=== PATIENT | male | born 1975 | race Caucasian/White ===

== ENCOUNTER 2019-06-11 13:21 | Emergency (ER) | payer BC ==
--- NOTE | 2019-06-11 14:05 | EDM.PDOC ---
<Paula Bach - Last Filed: 06/11/19 14:14> ED HPI GENERAL MEDICAL PROBLEM - General Chief Complaint: General Stated Complaint: LIGHTHEADED AND CHEST PAIN Time Seen by Provider: 06/11/19 13:30 Source of Information: Reports: Patient History Limitations: Reports: No Limitations - History of Present Illness INITIAL COMMENTS - FREE TEXT/NARRATIVE: 43 year old male presents to the ED after being sent here from the walk in clinic. 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 Pt states that he was getting ready to yell at the class to get their attention when he suddenly became dizzy, nauseated and had double vision. Denies diaphoresis or chest pain or palpitations. States that he immediately sat down for fear of passing out and had his students watch a movie. He said that he ate lunch and still did not feel well, so he decided to go to the walk in clinic. Has episodes where he feels slightly dizzy and his hands and fingers become cold. Has had issues in the past where if he stands up too quickly, he will get dizzy, but this resolves on its own. Currently is being treated by a psychologist for anxiety with magnesium supplementation and cbd oil , which he said seems to be helping. Also complains of muscle pain at the base of his skull which he contributes to tension. Excercises most days running 3 miles. Drinks one cup of coffee daily. Right Chest Pain Score (Numeric/FACES): 4 - Related Data Allergies Allergy/AdvReac Type Severity Reaction Status Date / Time No Known Allergies Allergy Verified 07/24/14 16:06 Home Meds: Home Meds Acetaminophen [Tylenol] 650 mg PO DAILY 07/24/14 [History] Ibuprofen [Advil] 200 mg PO Q6H PRN 07/24/14 [History] Acetaminophen/oxyCODONE [Percocet 325-5 MG] 1 each PO Q6H PRN #40 tab 07/27/14 [ Rx] Past Medical History Musculoskeletal History: Reports: Other (See Below) Other Musculoskeletal History: ACL replaced Social & Family History - Tobacco Use Smoking Status *Q: Never Smoker - Caffeine Use Caffeine Use: Reports: Coffee, Soda - Recreational Drug Use Recreational Drug Use: No ED ROS GENERAL - Review of Systems Review Of Systems: See Below Constitutional: Reports: No Symptoms HEENT: Reports: Vision Change. Denies: Vertigo Respiratory: Reports: No Symptoms Cardiovascular: Reports: Lightheadedness. Denies: Chest Pain, Dyspnea on Exertion, Palpitations, Syncope Endocrine: Reports: No Symptoms GI/Abdominal: Reports: No Symptoms : Reports: No Symptoms Musculoskeletal: Reports: Neck Pain (paraspinous pain) Skin: Reports: No Symptoms Neurological: Reports: Dizziness. Denies: Headache, Numbness, Syncope, Tingling , Trouble Speaking, Difficulty Walking, Change in Speech Psychiatric: Reports: No Symptoms Hematologic/Lymphatic: Reports: No Symptoms Immunologic: Reports: No Symptoms ED EXAM, GENERAL - Physical Exam Exam: See Below Exam Limited By: No Limitations General Appearance: Alert, WD/WN, No Apparent Distress Ears: Normal External Exam, Hearing Grossly Normal Nose: Normal Inspection, Normal Mucosa, No Blood Throat/Mouth: Normal Inspection, Normal Lips, Normal Teeth, Normal Gums, Normal Oropharynx, Normal Voice, No Airway Compromise Head: Atraumatic, Normocephalic Neck: Normal Inspection, Supple, Non-Tender Respiratory/Chest: No Respiratory Distress, Lungs Clear, Normal Breath Sounds, No Accessory Muscle Use, Chest Non-Tender Cardiovascular: Normal Peripheral Pulses, Regular Rate, Rhythm, No Edema, No Murmur GI/Abdominal: Normal Bowel Sounds, Soft, Non-Tender (Male) Exam: Deferred Rectal (Males) Exam: Deferred Back Exam: Normal Inspection, Full Range of Motion, Paraspinal Tenderness ( cervical) Extremities: Normal Inspection, Normal Range of Motion, Non-Tender, Normal Capillary Refill Neurological: Alert, Oriented, No Motor/Sensory Deficits Psychiatric: Normal Affect, Normal Mood Skin Exam: Warm, Dry, Intact, Normal Color, No Rash, Other (xanthelasma noted to bilateral eyelids and under eyes) Lymphatic: No Adenopathy Course - Vital Signs Last Recorded V/S: Last Vital Signs Temp 97.7 F 06/11/19 13:30 Pulse 67 06/11/19 13:30 Resp 10 L 06/11/19 13:30 BP 147/87 H 06/11/19 13:30 Pulse Ox - Orders/Labs/Meds Orders: Active Orders 24 hr Category Date Time Status EKG Documentation Completion [RC] ASDIRECTED Care 06/11/19 13:43 Active Holter Monitor 48 Hours [RC] .PRN Care 06/11/19 14:50 Active EKG 12 Lead [EK] Stat Ther 06/11/19 13:43 Ordered Labs: Laboratory Tests 06/11/19 06/11/19 Range/Units 14:00 14:00 WBC 7.76 (4.23-9.07) K/mm3 RBC 4.88 (4.63-6.08) M/mm3 Hgb 13.6 L D (13.7-17.5) gm/dl Hct 40.1 (40.1-51.0) % MCV 82.2 (79.0-92.2) fl MCH 27.9 (25.7-32.2) pg MCHC 33.9 (32.2-35.5) g/dl RDW Std Deviation 39.0 (35.1-43.9) fL Plt Count 190 (163-337) K/mm3 MPV 10.9 (9.4-12.3) fl Neut % (Auto) 53.6 (34.0-67.9) % Lymph % (Auto) 32.1 (21.8-53.1) % [place] % (Auto) 10.7 (5.3-12.2) % Eos % (Auto) 2.8 (0.8-7.0) Baso % (Auto) 0.4 (0.1-1.2) % Neut # (Auto) 4.16 (1.78-5.38) K/mm3 Lymph # (Auto) 2.49 (1.32-3.57) K/mm3 [place] # (Auto) 0.83 H (0.30-0.82) K/mm3 Eos # (Auto) 0.22 (0.04-0.54) K/mm3 Baso # (Auto) 0.03 (0.01-0.08) K/mm3 Sodium 139 (136-145) mEq/L Potassium 4.0 (3.5-5.1) mEq/L Chloride 103 (98-107) mEq/L Carbon Dioxide 28 (21-32) mEq/L Anion Gap 12.0 (5-15) BUN 24 H (7-18) mg/dL Creatinine 1.0 (0.7-1.3) mg/dL Est Cr Clr Drug Dosing 103.54 mL/min Estimated GFR (MDRD) > 60 (>60) mL/min BUN/Creatinine Ratio 24.0 H (14-18) Glucose 99 (74-106) mg/dL Calcium 9.0 (8.5-10.1) mg/dL Total Bilirubin 0.2 (0.2-1.0) mg/dL AST 24 (15-37) U/L ALT 42 (16-63) U/L Alkaline Phosphatase 122 H (46-116) U/L Troponin I < 0.017 (0.00-0.056) ng/mL Total Protein 7.5 (6.4-8.2) g/dl Albumin 3.7 (3.4-5.0) g/dl Globulin 3.8 gm/dL Albumin/Globulin Ratio 1.0 (1-2) - Re-Assessments/Exams Free Text/Narrative Re-Assessment/Exam: 06/11/19 1345 I have ordered a CBC, CMP, Trop., and chest xray on this patient. EKG was already obtained. Departure - Departure Disposition: Home, Self-Care 01 Clinical Impression: Near syncope - Discharge Information Instructions: Near-Syncope Referrals: Franki Chavarria MD [Primary Care Provider] - Forms: ED Department Discharge Additional Instructions: 48 hour holter moniter. See Dr Bourgeois in about 8 to 12 days for follow up, call for appointment. Return to ED as needed if symptoms worsening in any way. - My Orders Last 24 Hours: My Active Orders 06/11/19 13:43 EKG Documentation Completion [RC] ASDIRECTED EKG 12 Lead [EK] Stat - Assessment/Plan Last 24 Hours: My Active Orders 06/11/19 13:43 EKG Documentation Completion [RC] ASDIRECTED EKG 12 Lead [EK] Stat <Matthew Dumont L - Last Filed: 06/11/19 15:28> EKG INTERPRETATION EKG Date: 06/11/19 Rhythm: NSR [place]: Normal P-Wave: Present QRS: Normal ST-T: Normal QT: Normal Course - Re-Assessments/Exams Free Text/Narrative Re-Assessment/Exam: 06/11/19 15:21. Initial hx and exam was done by LEONIE Dwyer student. I agree with hx and exam as documented. I have also interviewed and examined patient. Lab have come back normal including troponin. EKG was normal. He is been in sinus rhythm with no ectopy. Departure - Departure Time of Disposition: 15:16 Condition: Fair
--- NOTE | 2019-06-11 14:32 | CR ---
Chest: Two views of the chest were obtained. Comparison: No prior chest x-ray. Heart size and mediastinum are normal. Lungs are clear. Bony structures are unremarkable. Impression: 1. Nothing acute is seen on two-view chest x-ray. Diagnostic code #1
== END 2019-06-11 15:24 | disposition home or self-care (01) ==
LOC: JD.ED 13:21
DX: R55 Syncope and collapse (principal)
CPT/HCPCS: 36415; 71046; 71046-26; 80053; 84484; 85025; 93005; 93010; 93225; 93226; 99284; 99285-25

== ENCOUNTER 2019-08-31 11:35 | Emergency (ER) | payer BC ==
[2019-08-31] MEDS ORDERED: Ondansetron 4 MG/2 ML SDV IVPUSH ONE (11:48)
[2019-08-31] MEDS ORDERED: Sodium Chloride 0.9% 10 ML Syringe FLUSH PRN (11:48)
[2019-08-31] MEDS ORDERED: Morphine 4 MG/ML Syringe IVPUSH ONE (11:48)
[2019-08-31] MEDS ORDERED: Sodium Chloride 0.9% 1,000 ML IV ONE (11:49)
--- NOTE | 2019-08-31 11:51 | EDM.PDOC ---
ED HPI GENERAL MEDICAL PROBLEM - General Chief Complaint: Abdominal Pain Stated Complaint: RT SIDE PAIN Time Seen by Provider: 08/31/19 11:44 Source of Information: Reports: Patient, Family History Limitations: Reports: No Limitations - History of Present Illness INITIAL COMMENTS - FREE TEXT/NARRATIVE: The patient is an unfortunate 43-year-old male who presents emergency Department today with complaint of right flank pain and right lower quadrant abdominal pain started approximately 6 AM when he awoke this morning. Patient reports pain is progressed throughout the days had multiple episodes of vomiting secondary to the pain was so severe he did not go to [facility] this morning. No fever no chills positive nausea positive vomiting no dysuria and frequency no urgency no hematuria no chest pain no shortness of breath. Right Upper Abdomen Pain Score (Numeric/FACES): 9 - Related Data Allergies Allergy/AdvReac Type Severity Reaction Status Date / Time No Known Allergies Allergy Verified 08/31/19 11:44 Home Meds: Home Meds Acetaminophen with Codeine [Tylenol with Codeine #3 Tablet] 1 each PO Q4H PRN # 20 tablet 08/31/19 [Rx] Past Medical History - Past Health History Medical/Surgical History: Denies Medical/Surgical History Musculoskeletal History: Reports: Other (See Below) Other Musculoskeletal History: ACL replaced Social & Family History - Caffeine Use Caffeine Use: Reports: Coffee, Soda ED ROS GENERAL - Review of Systems Review Of Systems: See Below Constitutional: Denies: Fever, Chills GI/Abdominal: Reports: Abdominal Pain, Nausea, Vomiting. Denies: Diarrhea Musculoskeletal: Reports: Back Pain ED EXAM, GI/ABD - Physical Exam Exam: See Below Exam Limited By: No Limitations General Appearance: Alert, WD/WN, Moderate Distress Throat/Mouth: Normal Inspection, Normal Lips, Normal Teeth, Normal Gums, Normal Oropharynx, Normal Voice, No Airway Compromise Head: Atraumatic, Normocephalic Neck: Normal Inspection, Supple, Non-Tender, Full Range of Motion Respiratory/Chest: No Respiratory Distress, Lungs Clear, Normal Breath Sounds, No Accessory Muscle Use, Chest Non-Tender Cardiovascular: Normal Peripheral Pulses, Regular Rate, Rhythm, No Edema, No Gallop, No JVD, No Murmur, No Rub GI/Abdominal Exam: Normal Bowel Sounds, Soft, Tender (Right lower quadrant, right upper quadrant mild) Back Exam: CVA Tenderness (R) (Mild) Extremities: Normal Inspection, Normal Range of Motion, Non-Tender, Normal Capillary Refill, No Pedal Edema Neurological: Alert Skin Exam: Warm, Dry, No Rash Course - Vital Signs Last Recorded V/S: Last Vital Signs Temp 97 F 08/31/19 11:46 Pulse 58 L 08/31/19 11:46 Resp 20 08/31/19 11:46 BP 171/97 H 08/31/19 11:46 Pulse Ox 99 08/31/19 11:46 - Orders/Labs/Meds Orders: Active Orders 24 hr Category Date Time Status Sodium Chloride 0.9% [Saline Flush] Med 08/31/19 11:48 Active 10 ml FLUSH ASDIRECTED PRN Saline Lock Insert [OM.PC] Stat Oth 08/31/19 11:48 Ordered Medication Orders Sodium Chloride (Saline Flush) 10 ml FLUSH ASDIRECTED PRN PRN Reason: Keep Vein Open Last Admin: 08/31/19 11:59 Dose: 10 ml Labs: Laboratory Tests 08/31/19 08/31/19 08/31/19 Range/Units 12:00 12:00 12:13 WBC 12.62 H (4.23-9.07) K/mm3 RBC 5.07 (4.63-6.08) M/mm3 Hgb 14.6 (13.7-17.5) gm/dl Hct 42.1 (40.1-51.0) % MCV 83.0 (79.0-92.2) fl MCH 28.8 (25.7-32.2) pg MCHC 34.7 (32.2-35.5) g/dl RDW Std Deviation 38.4 (35.1-43.9) fL Plt Count 182 (163-337) K/mm3 MPV 10.9 (9.4-12.3) fl Neut % (Auto) 73.9 H (34.0-67.9) % Lymph % (Auto) 15.5 L (21.8-53.1) % [place] % (Auto) 9.4 (5.3-12.2) % Eos % (Auto) 0.7 L (0.8-7.0) Baso % (Auto) 0.1 (0.1-1.2) % Neut # (Auto) 9.34 H (1.78-5.38) K/mm3 Lymph # (Auto) 1.95 (1.32-3.57) K/mm3 [place] # (Auto) 1.18 H (0.30-0.82) K/mm3 Eos # (Auto) 0.09 (0.04-0.54) K/mm3 Baso # (Auto) 0.01 (0.01-0.08) K/mm3 Sodium 140 (136-145) mEq/L Potassium 4.3 (3.5-5.1) mEq/L Chloride 101 (98-107) mEq/L Carbon Dioxide 30 (21-32) mEq/L Anion Gap 13.3 (5-15) BUN 19 H (7-18) mg/dL Creatinine 1.2 (0.7-1.3) mg/dL Est Cr Clr Drug Dosing TNP Estimated GFR (MDRD) > 60 (>60) mL/min BUN/Creatinine Ratio 15.8 (14-18) Glucose 109 H (74-106) mg/dL Calcium 9.4 (8.5-10.1) mg/dL Total Bilirubin 0.4 (0.2-1.0) mg/dL AST 23 (15-37) U/L ALT 42 (16-63) U/L Alkaline Phosphatase 99 (46-116) U/L Total Protein 7.8 (6.4-8.2) g/dl Albumin 3.9 (3.4-5.0) g/dl Globulin 3.9 gm/dL Albumin/Globulin Ratio 1.0 (1-2) Lipase 84 (73-393) U/L Urine Color Yellow (Yellow) Urine Appearance Clear (Clear) Urine pH 7.0 (5.0-8.0) Ur Specific [place] 1.025 (1.005-1.030) Urine Protein 2+ H (Negative) Urine Glucose (UA) Negative (Negative) Urine Ketones Negative (Negative) Urine Occult Blood 3+ H (Negative) Urine Nitrite Negative (Negative) Urine Bilirubin Negative (Negative) Urine Urobilinogen 0.2 (0.2-1.0) Ur Leukocyte Esterase Negative (Negative) Urine RBC Too numerous to cnt H (0-5) /hpf Urine WBC Not seen (0-5) /hpf Ur Squamous Epith Cells Not seen (0-5) /hpf Urine Bacteria Not seen (FEW) /hpf Urine Mucus Not seen (FEW) /hpf Meds: Medications Generic Name Dose Route Start Last Admin Trade Name Freq PRN Reason Stop Dose Admin Sodium Chloride 10 ml 08/31/19 11:48 08/31/19 11:59 Saline Flush FLUSH 10 ml ASDIRECTED PRN Administration Keep Vein Open Discontinued Medications Generic Name Dose Route Start Last Admin Trade Name Freq PRN Reason Stop Dose Admin Sodium Chloride 1,000 mls @ 1,000 mls/hr 08/31/19 11:49 08/31/19 11:59 Normal Saline IV 08/31/19 12:48 1,000 mls/hr ONETIME ONE Administration Ketorolac Tromethamine 30 mg 08/31/19 12:21 08/31/19 12:31 Toradol IVPUSH 08/31/19 12:22 30 mg ONETIME ONE Administration Morphine Sulfate 4 mg 08/31/19 11:48 08/31/19 11:58 Morphine IVPUSH 08/31/19 11:49 4 mg ONETIME ONE Administration Ondansetron HCl 4 mg 08/31/19 11:48 08/31/19 11:59 Zofran IVPUSH 08/31/19 11:49 4 mg ONETIME ONE Administration - Re-Assessments/Exams Free Text/Narrative Re-Assessment/Exam: 08/31/19 13:03 CT abdomen and pelvis "impression: #1 4 mm obstructing stone within the right proximal right ureter as described above. #2 2 nonobstructing renal calculi within the left kidney #3 no other acute findings appreciated." Departure - Departure Time of Disposition: 13:04 Disposition: Home, Self-Care 01 Condition: Good Clinical Impression: Renal colic on right side, Ureterolithiasis - Discharge Information Prescriptions: Acetaminophen with Codeine [Tylenol with Codeine #3 Tablet] 1 each PO Q4H PRN # 20 tablet PRN Reason: Pain Referrals: Franki Chavarria MD [Primary Care Provider] - Forms: ED Department Discharge Sepsis Event Note - Evaluation Sepsis Screening Result: No Definite Risk - Focused Exam Vital Signs: Vital Signs Temp Pulse Resp BP Pulse Ox 08/31/19 11:46 97 F 58 L 20 171/97 H 99 Date Exam was Performed: 08/31/19 Time Exam was Performed: 13:03 - My Orders Last 24 Hours: My Active Orders 08/31/19 11:48 Sodium Chloride 0.9% [Saline Flush] 10 ml FLUSH ASDIRECTED PRN Saline Lock Insert [OM.PC] Stat - Assessment/Plan Last 24 Hours: My Active Orders 08/31/19 11:48 Sodium Chloride 0.9% [Saline Flush] 10 ml FLUSH ASDIRECTED PRN Saline Lock Insert [OM.PC] Stat
[2019-08-31] MEDS ORDERED: Ketorolac 30 MG/ML SDV IVPUSH ONE (12:21)
--- NOTE | 2019-08-31 12:55 | CT ---
CT abdomen and pelvis Technique: Multiple axial sections were obtained from above the dome of the diaphragm inferiorly to the pubic symphysis. Intravenous and oral contrast not utilized. Study has been performed as a ureteral stone protocol. Comparison: No prior abdominal imaging. Findings: Collecting system of the right kidney is mildly dilated. Inflammatory change is seen around the proximal right ureter. These findings are cause by a nonobstructing stone within the proximal right ureter measuring about 4 mm. This stone is located at the inferior L3 vertebral level. No other abnormal calcifications are seen along the course of the ureters. 2 nonobstructing calculi are seen within the left kidney. Right kidney shows no abnormal calcifications. Other findings: Visualized lung bases show nothing acute. Noncontrast appearance of the liver and spleen shows no discrete abnormality. Adrenal glands show no nodule. Pancreas shows no discrete finding. Gallbladder contains no calcified gallstones. Aorta shows no aneurysm. No retroperitoneal adenopathy or mesenteric abnormalities are seen. Appendix is seen which is normal in size. No pelvic mass or adenopathy is seen. No free fluid is seen. Bone window settings were reviewed which shows no acute osseous finding. Impression: 1. 4 mm obstructing stone within the proximal right ureter as described above. 2. 2 nonobstructing calculi within the left kidney. 3. No other acute finding is appreciated. Diagnostic code #3 Study was dictated in [place] Standard Time
== END 2019-08-31 13:25 | disposition home or self-care (01) ==
LOC: JD.ED 11:35
DX: N20.2 Calculus of kidney with calculus of ureter (principal)
CPT/HCPCS: 36415; 74176; 80053; 81001; 83690; 85025; 96361; 96374; 96375; 99284; J1885; J2270; J2405; J7030